=== PATIENT | male | born 1985 | race Two or more races ===

== ENCOUNTER → 2022-08-27 | Emergency (ER) | payer OTHER ==
[~2022-08-27] VITALS: Ht 167.6 cm; Wt 88.5 kg
[~2022-08-27] MED LIST: AMOX-CLAV 875-1 EACH PO
== END | disposition home or self-care (01) ==
LOC: ER 08:09
DX: J03.90 Acute tonsillitis, unspecified (principal); R53.81 Other malaise

== ENCOUNTER → 2022-10-13 | Emergency (ER) | payer OTHER ==
[~2022-10-13] VITALS: Ht 167.6 cm; Wt 88.9 kg
== END | disposition home or self-care (01) ==
LOC: ER 17:25
DX: J03.90 Acute tonsillitis, unspecified (principal); R53.81 Other malaise